=== PATIENT | female | born 1960 | race Caucasian/White ===

== ENCOUNTER 2016-10-18 08:45 | Emergency (ER) | payer OTHER ==
[~2016-10-18 08:45] MED LIST: ADVA100A INH; DIAZ10 PO; FURO1TAB60 PO; HYDR-3583 PO; HYDR25TA5 PO; IPRASOL INH; METF500T PO; PRED20 PO; VENTAER INH
[2016-10-18 08:51] VITALS: BP 149/71; PULSE 80; RESP 20; TEMP 97.9; O2SAT 96
--- NOTE | 2016-10-18 09:05 | PD ---
HPI Chief Complaint: Fall Time Seen by Provider: 08:57 Travel History International Travel<30 days: No Contact w/Intl Traveler<30days: No Traveled to known affect area: No History of Present Illness HPI 55-year-old female here with complaint of pain and swelling after a fall. 4 days ago patient had a mechanical fall, falling on outstretched right hand and landing on her right leg. She did not hit her head, denies any loss of consciousness, neck or back pain. She notes slight pain to the right elbow, worse with full extension and with having to pick items up. She is however able to fully extend and fully flex the elbow. She also notes pain globally throughout the right knee, medial aspect of the right ankle and dorsum of the right foot. She has developed progressive ecchymosis that has now settled into the foot prompting her ER visit. She is not on any blood thinners, but does take prednisone and states that she has fragile skin and bruises easily. PFSH Past Medical History Arthritis: No Asthma: Yes Autoimmune Disease: No Blood Disorders: No Anxiety: Yes Depression: Yes Heart Rhythm Problems: No Cancer: Yes (SKIN AND CERVICAL) Cardiovascular Problems: Yes High Cholesterol: Yes Chemotherapy: No Chest Pain: No Congestive Heart Failure: No COPD: Yes Cerebrovascular Accident: No Coronary Artery Disease: No Diabetes: Yes Diminished Hearing: No Endocrine: Yes Gastrointestinal Disorders: Yes (HX RUPT. DIVERTIC/ COLOSTOMY TAKE DOWN) GERD: No Glaucoma: No Genitourinary: No Headaches: No Hepatitis: No Hiatal Hernia: No Hypertension: No Immune Disorder: No Implanted Vascular Access Dvce: No Kidney Stones: No Musculoskeletal: Yes (CHR. BACK PAIN) Neurologic: No Psychiatric: Yes (ANXIETY) Reproductive: No Respiratory: Yes (COPD) Immunizations Current: Yes Migraines: No Myocardial Infarction: No Radiation Therapy: No Renal Failure: No Seizures: No Sickle Cell Disease: No Sleep Apnea: No Thyroid Disease: Yes (DYSFUNCTIONAL THYROGLOSSAL GLAND) Ulcer: No PNEUMOCCOCAL Vaccine (Year): 1 Menopausal: Yes : 1 Para: 1 Miscarriage: 0 : 0 Past Surgical History Abdominal Surgery: Yes (COLON RESESCTION/ COLOSTOMY, COLOSTOMY CLOSURE) AICD: No Appendectomy: No Arteriovenous Shunt: No Cardiac Surgery: No Section: Yes Cholecystectomy: No Ear Surgery: No Endocrine Surgery: Yes (THYROGLOSSAL GLAND I&D (X4)) Eye Surgery: No Genitourinary Surgery: Yes (C SEC.) Gynecologic Surgery: Yes () Insulin Pump: No Joint Replacement: No Neurologic Surgery: No Oral Surgery: Yes (CLEFT PALATE REPAIR) Pacemaker: No Thoracic Surgery: Yes (CLEFT PALATE REP. WITH RIB RESECT.) Other Surgery: Yes Social History Alcohol Use: Yes (~3-4 X WEEKLY) Tobacco Use: Yes (1 PPD) Substance Use: No (DENIES) Allergies-Medications (Allergen,Severity, Reaction): Coded Allergies: Tetracycline (Verified Allergy, Severe, YEAST INFECTION, 10/18/16) Reported Meds & Prescriptions Reported Meds & Active Scripts Active Lasix (Furosemide) 40 Mg Tab 40 Mg PO DAILY Reported Novolog Inj (Insulin Aspart) 1,000 Unit/10 Ml Vial 0 SQ DIRECTED Sliding Scale as directed. [K-Clor] 20 Meq PO DAILY Lantus Inj (Insulin Glargine) 1,000 Unit/10 Ml Vial 40 Units SQ HS Levothyroxine (Levothyroxine Sodium) 25 Mcg Tab Unknown Dose PO DAILY Simvastatin 20 Mg Tab Unknown Dose PO DAILY Gabapentin 800 Mg Tab 750 Mg PO TID Hydrocodone-Acetaminophen 10-325 mg Tab 1 Tab PO Q6H PRN Prednisone 20 Mg Tab 20 Mg PO DAILY Review of Systems Except as stated in HPI: all other systems reviewed are Neg Physical Exam Narrative GENERAL: Adult female appearing older than stated age in no acute distress SKIN: Ecchymosis of varying ages on all 4 extremities HEAD: Normocephalic. EYES: No scleral icterus. No injection or drainage. ENT: Mucous membranes pink and moist. NECK: Supple without midline tenderness CARDIOVASCULAR: Regular rate and rhythm. RESPIRATORY: No accessory muscle use. MUSCULOSKELETAL: Right elbow with full flexion and extension range of motion, good strength but with active flexion patient does have tenderness over the lateral aspect of the elbow. The right leg from the knee distally is ecchymotic. Notably in the dorsum of the foot. Patient has diffuse tenderness to palpation throughout the right knee but not any specific area along the joint line or patella. She is able to fully flex and fully extend the knee. She is able to ambulate and bear weight without difficulty. No obvious ligament laxity. The right ankle and foot are notably edematous with ecchymosis. She does have tenderness to palpation over the medial malleolus of the right ankle and along the first and second metatarsals of the right foot. Good distal sensation and pulses. NEUROLOGICAL: Awake and alert. Normal speech. PSYCHIATRIC: Appropriate mood and affect; insight and judgment normal. Data Data Last Documented VS Vital Signs Date Time Temp Pulse Resp B/P Pulse Ox O2 Delivery O2 Flow Rate FiO2 10/18/16 08:51 97.9 80 20 149/71 96 Orders Ankle, Complete (Qwc2avs) (10/18/16 09:00) Elbow, Complete (4 Vws) (10/18/16 09:00) Foot, Limited (2vws) (10/18/16 09:00) Knee, Complete (4vws) (10/18/16 09:00) MDM Medical Decision Making Medical Screen Exam Complete: Yes Emergency Medical Condition: Yes Medical Record Reviewed: Yes Differential Diagnosis 55-year-old female here with complaint of right elbow, knee, ankle and foot pain after mechanical fall 4 days ago. Differential includes contusion, ecchymosis, fracture, sprain, dislocation, internal derangement of the knee. Narrative Course X-rays of the right elbow, knee, ankle and foot were obtained and negative. Diagnosis Primary Impression: Traumatic ecchymosis of right lower leg Qualified Code: S80.11XA - Traumatic ecchymosis of right lower leg, initial encounter Additional Impressions: Contusion of right leg Qualified Code: S80.11XA - Contusion of right leg, initial encounter Fall Qualified Code: W19.XXXA - Fall, initial encounter Referrals: Primary Care Physician as needed Additional Instructions: X-rays of the elbow, knee, ankle and foot were negative. Ice and elevate as instructed. Med/Other Pt SpecificInfo: No Change to Meds Disposition: 01 DISCHARGE HOME Condition: Stable Akilah Randle MD Oct 18, 2016 09:05
[2016-10-18] MEDS ORDERED: SIMV20TA PO (09:09)
[2016-10-18] MEDS ORDERED: GABA800T PO (09:09)
[2016-10-18] MEDS ORDERED: LEVO25TA4 PO (09:09)
[2016-10-18] MEDS ORDERED: HYDR-3535 PO (09:10)
[2016-10-18] MEDS ORDERED: [UNRECOGNIZED DRUG - OTHER] PO (09:10)
[2016-10-18] MEDS ORDERED: LANTUS2P SQ (09:10)
[2016-10-18] MEDS ORDERED: NOVOLOGP2 SQ (09:10)
--- NOTE | 2016-10-18 09:49 | RADRPT ---
EXAM DATE/TIME: 10/18/2016 09:08 [facility] COMPARISON: No previous studies available for comparison. INDICATIONS : Right ankle pain after falling MEDICAL HISTORY : Diabetes mellitus type II. SURGICAL HISTORY : None. ENCOUNTER: Initial ACUITY: 4 - 6 days PAIN SCORE: 6/10 LOCATION: Right medial ankle FINDINGS: No definite fractures, or dislocations are identified. No definite lytic or sclerotic lesion is seen . Soft tissue swelling is identified. The joint spaces are well maintained. CONCLUSION: Soft tissue swelling and no definite fracture for technique. Chao Gonzalez MD on October 18, 2016 at 9:46 Board Certified Radiologist. This report was verified electronically.
--- NOTE | 2016-10-18 09:51 | RADRPT ---
EXAM DATE/TIME: 10/18/2016 09:11 [facility] COMPARISON: No previous studies available for comparison. INDICATIONS : Right knee pain after falling MEDICAL HISTORY : Diabetes mellitus type II. SURGICAL HISTORY : None. ENCOUNTER: Initial ACUITY: 4 - 6 days PAIN SCORE: 3/10 LOCATION: Right anterior knee FINDINGS: No definite fractures, or dislocations are identified. No definite lytic or sclerotic lesion is seen . The joint spaces are well maintained. CONCLUSION: Unremarkable study. Chao Gonzalez MD on October 18, 2016 at 9:49 Board Certified Radiologist. This report was verified electronically.
--- NOTE | 2016-10-18 09:51 | RADRPT ---
EXAM DATE/TIME: 10/18/2016 09:10 [facility] COMPARISON: No previous studies available for comparison. INDICATIONS : Right foot pain after falling MEDICAL HISTORY : Diabetes mellitus type II. SURGICAL HISTORY : None. ENCOUNTER: Initial ACUITY: 4 - 6 days PAIN SCORE: 5/10 LOCATION: Right anterior foot FINDINGS: No definite fractures, or dislocations are identified. No definite lytic or sclerotic lesion is seen . The joint spaces are well maintained. CONCLUSION: Unremarkable study. Chao Gonzalez MD on October 18, 2016 at 9:48 Board Certified Radiologist. This report was verified electronically.
--- NOTE | 2016-10-18 09:54 | RADRPT ---
EXAM DATE/TIME: 10/18/2016 09:15 [facility] COMPARISON: ELBOW RIGHT COMPLETE (4 VWS), November 26, 2014, 22:54. INDICATIONS : Right elbow pain after falling MEDICAL HISTORY : Diabetes mellitus type II. SURGICAL HISTORY : None. ENCOUNTER: Initial ACUITY: 4 - 6 days PAIN SCORE: 5/10 LOCATION: Right posterior elbow FINDINGS: No definite fractures, or dislocations are identified. No definite lytic or sclerotic lesion is seen . The joint spaces are well maintained.There is a lucent line involving the radial head has the appe arance of a nutrient channel. CONCLUSION: Unremarkable study. Chao Gonzalez MD on October 18, 2016 at 9:50 Board Certified Radiologist. This report was verified electronically.
== END 2016-10-18 10:04 | disposition home or self-care (01) ==
LOC: PHED 08:45
DX: S80.11XA Contusion of right lower leg, initial encounter (principal); S90.31XA Contusion of right foot, initial encounter; S90.01XA Contusion of right ankle, initial encounter; M25.521 Pain in right elbow; E11.9 Type 2 diabetes mellitus without complications; E07.9 Disorder of thyroid, unspecified; E78.00 Pure hypercholesterolemia, unspecified; F17.200 Nicotine dependence, unspecified, uncomplicated; W19.XXXA Unspecified fall, initial encounter; Z79.4 Long term (current) use of insulin; Z87.09 Personal history of other diseases of the respiratory system; Z86.59 Personal history of other mental and behavioral disorders; Z86.79 Personal history of other diseases of the circulatory system; Z87.19 Personal history of other diseases of the digestive system; Z87.39 Personal history of other diseases of the musculoskeletal system and connective tissue
CPT/HCPCS: 73080; 73564; 73610; 73620; 99284

== ENCOUNTER → 2017-04-07 | Outpatient (CLI) | payer OTHER ==
[~2017-04-07] MED LIST changes: -ADVA100A INH; -DIAZ10 PO; +DIFL0.0512 RIGHT EYE; +FURO40TA PO; +GABA800T PO; -HYDR25TA5 PO; -IPRASOL INH; +LANTUS2P SQ; +LEVO25TA4 PO; -METF500T PO; +NEPA0.3D RIGHT EYE; +NOVOLOGP2 SQ; +SIMV20TA PO; -VENTAER INH; +VIGA0.5D RIGHT EYE; +[UNRECOGNIZED DRUG - OTHER] PO
--- NOTE | 2017-04-08 14:31 | EKG ---
Date Performed: 04/07/2017 Time Performed: 13:42:00 PTAGE: 56 years EKG: Sinus rhythm . Inferior/lateral ST-T changes are nonspecific Compared to previous tracing the marked inferolateral ST segment depression has resolved. Clinical correlation will be necessary to exclude reversible ora cardial ischemia. Borderline ECG PREVIOUS TRACING : 02/04/2016 19.39 DOCTOR: Patience Guzman Interpretating Date/Time 04/08/2017 14:29:57
== END ==
LOC: HCAV 13:36
PROVIDERS: ATTEND Ophthalmology
DX: H25.041 Posterior subcapsular polar age-related cataract, right eye (principal); R94.31 Abnormal electrocardiogram [ECG] [EKG]
CPT/HCPCS: 93005

== ENCOUNTER → 2017-04-30 | Day surgery (SDC) | payer OTHER ==
[~2017-04-30] VITALS: Ht 170.2 cm; Wt 73.5 kg
[~2017-04-30] MED LIST changes: +ACETAMINOPHEN 500 MG CPLT ONE; +CIPR-9 PO; +CYCLOPENTOLATE HCL 1% OPHT SOLN 2 ML BTL ONE; +DEXAMETHASONE SOD PHOS 4 MG/ML VIAL IV ONE; +EPINEPHrine HCL PF/SF (1:1000) 1 MG/ML AMP I-OCULAR ONE; +LIDOCAINE HCL 1% PF 5 ML SYRINGE OTHER ONE; +MIDAZOLAM HCL 2 MG/2 ML VIAL ONE; +ONDANSETRON HCL 4 MG/2 ML VIAL IV PUSH ONE; +PHENYLEPHRINE HCL 10% OPTH SOLN 5 ML BTL ONE; +PROPOFOL 200 MG/20 ML AMP IV ONE; +SODIUM CHLORID 0.9% 500 ML INJ 500 ML ONE; +SYMB80AE INH; +TETRACAINE 0.5% OPTH SOLN 4 ML BTL ONE; +TOBRAMYCIN/DEXAMETHASONE OPTH OINT 3.5 GM TUBE ONE; +TROPICAMIDE 1% OPHT SOLN 15 ML BTL ONE; +VISCOAT OPHT IRRIG SOLN 0.75 ML SYRINGE ONE; +fentaNYL CITRATE 250 MCG/5 ML AMP ONE
[2017-04-30] MEDS: TROPICAMIDE 1% OPHT SOLN 15 ML BTL RIGHT EYE SCH ×3 (07:05→07:15)
[2017-04-30] MEDS: PHENYLEPHRINE HCL 10% OPTH SOLN 5 ML BTL RIGHT EYE SCH ×3 (07:05→07:15)
[2017-04-30] MEDS: TETRACAINE 0.5% OPTH SOLN 4 ML BTL RIGHT EYE SCH ×3 (07:05→07:15)
[2017-04-30] MEDS: CYCLOPENTOLATE HCL 1% OPHT SOLN 2 ML BTL RIGHT EYE SCH ×3 (07:05→07:15)
[2017-04-30 09:03] VITALS: PULSE 83
--- NOTE | 2017-04-30 09:07 | PD.OP ---
Operative Report Date of Surgery: Apr 30, 2017 Preoperative Diagnosis: (1) Posterior subcapsular age-related cataract of right eye Postoperative Diagnosis: (1) Pseudophakia of right eye Procedure: phacoemulsification and intraocular lens implant right eye Anesthesia: General Surgeon: Marjan Oneil Sheet Metal Roofer(s): none Operation and Findings: Patient was consented for surgery, and taken back to the operating room. She was put under general anesthesia and prepped and draped in the usual sterile fashion for ophthalmic surgery. A wire lid speculum was placed in the right eye. A paracentesis incision was created at the 11 o'clock position on the limbus. Vision blue dye and viscoelastic was injected into the anterior chamber. The main incision was created at the 8 o'clock position on the limbus with a 2.4 mm keratome. A continuous curvilinear capsulorrhexis was made on the anterior lens capsule. Hydrodissection was used to separate the lens from the capsule. Phacoemulsification was used to remove the lens nucleus material. Irrigation and aspiration was used to remove the remaining cortical material. The lens implant ([id number] SN [id number]) was placed in the capsular bag. Viscoelastic was removed with irrigation and aspiration. The incisions were irrigated and found to be watertight. Tobradex ointment, a patch, and shield were placed on the right eye. The patient was sent to PACU in stable condition. Marjan Oneil MD Apr 30, 2017 09:07
[2017-04-30 09:15] VITALS: BP 158/79
[2017-04-30 09:27] VITALS: PULSE 76; RESP 16; TEMP 97.8; O2SAT 93
== END | disposition home or self-care (01) ==
LOC: PHSDC 06:38
PROVIDERS: ATTEND Ophthalmology
DX: H25.041 Posterior subcapsular polar age-related cataract, right eye (principal)
CPT/HCPCS: 00142; 66984; J0171; J1100; J2250; J2405; J3010; J7040; V2632

== ENCOUNTER 2017-09-14 02:08 | Emergency (ER) | payer OTHER ==
[~2017-09-14 02:08] MED LIST changes: -ACETAMINOPHEN 500 MG CPLT ONE; -CYCLOPENTOLATE HCL 1% OPHT SOLN 2 ML BTL ONE; -DEXAMETHASONE SOD PHOS 4 MG/ML VIAL IV ONE; -EPINEPHrine HCL PF/SF (1:1000) 1 MG/ML AMP I-OCULAR ONE; -FURO40TA PO; -LIDOCAINE HCL 1% PF 5 ML SYRINGE OTHER ONE; -MIDAZOLAM HCL 2 MG/2 ML VIAL ONE; -ONDANSETRON HCL 4 MG/2 ML VIAL IV PUSH ONE; -PHENYLEPHRINE HCL 10% OPTH SOLN 5 ML BTL ONE; -PROPOFOL 200 MG/20 ML AMP IV ONE; -SODIUM CHLORID 0.9% 500 ML INJ 500 ML ONE; -TETRACAINE 0.5% OPTH SOLN 4 ML BTL ONE; -TOBRAMYCIN/DEXAMETHASONE OPTH OINT 3.5 GM TUBE ONE; -TROPICAMIDE 1% OPHT SOLN 15 ML BTL ONE; -VISCOAT OPHT IRRIG SOLN 0.75 ML SYRINGE ONE; -fentaNYL CITRATE 250 MCG/5 ML AMP ONE
[2017-09-14 02:11] VITALS: BP 121/70; PULSE 92; RESP 20; TEMP 98.3; O2SAT 94
[2017-09-14 02:15] VITALS: O2SAT 94
[2017-09-14] MEDS ORDERED: methylPREDNISolone SOD SUCC 125 MG/2 ML VIAL IV PUSH ONE (02:15)
[2017-09-14] MEDS ORDERED: SODIUM CHLORIDE 0.9% FLUSH 10 ML FLUSH IVF PRN (02:15)
[2017-09-14] MEDS: RESP: ALBUTEROL 2.5 MG/IPRATROPIUM 0.5 MG NEB (SCH) INH ×3 (02:26→02:44)
--- NOTE | 2017-09-14 02:42 | RADRPT ---
EXAM DATE: 09/14/2017 2:30 AM EDT AGE/SEX: 56 years / Female INDICATIONS: Short of breath. CLINICAL DATA: This is the patient's initial encounter. Patient reports that signs and symptoms have been present for 1 day and indicates a pain score of 0/10. MEDICAL/SURGICAL HISTORY: . Hypercholesterolemia. Chronic obstructive pulmonary disease. Divert iculitis None. COMPARISON: [facility], CHEST SINGLE AP, 01/09/2016. . FINDINGS: A single AP view of the chest demonstrates the lungs to be symmetrically aerated without evidence of mass, infiltrate or effusion. The cardiomediastinal contours are unremarkable. Osseous structures a re intact. Atherosclerotic calcifications are again noted in the aorta. CONCLUSION: No acute cardiopulmonary disease. Electronically signed by: Pawel Zavala MD 09/14/2017 2:41 AM EDT
[2017-09-14 02:50] LABS: AUTOMATED NEUTROPHIL # 4.5 TH/MM3 (1.8-7.7); BASOPHIL # 0.1 TH/MM3 (0-0.2); EOSINOPHIL # 0.1 TH/MM3 (0-0.4); EOSINOPHIL % 0.8 % (0.0-4.0); HEMATOCRIT 45.8 % (35.0-46.0); HEMOGLOBIN 15.5 GM/DL (11.6-15.3); LYMPH % 31.7 % (9.0-44.0); LYMPHOCYTE # 2.4 TH/MM3 (1.0-4.8); MEAN CELL VOLUME 99.6 FL (80.0-100.0); MEAN CORPUSCULAR HEMOGLOBIN 33.6 PG (27.0-34.0); MEAN CORPUSCULAR HGB CONC 33.8 % (32.0-36.0); MEAN PLATELET VOLUME 8.1 FL (7.0-11.0); MONO % 7.1 % (0.0-8.0); MONOCYTE # 0.5 TH/MM3 (0-0.9); NEUT % 59.4 % (16.0-70.0); PLATELET COUNT 191 TH/MM3 (150-450); RED CELL DISTRIBUTION WIDTH 13.7 % (11.6-17.2); WHITE BLOOD COUNT 7.6 TH/MM3 (4.0-11.0)
[2017-09-14] MEDS ORDERED: IBUPROFEN 800 MG TAB PO ONE (03:00)
[2017-09-14 03:01] LABS: CHLORIDE 99 MEQ/L (98-107); SODIUM (NA) 137 MEQ/L (136-145)
[2017-09-14 03:03] LABS: BICARBONATE 23.4 MEQ/L (21.0-32.0); CALCIUM 8.8 MG/DL (8.5-10.1)
--- NOTE | 2017-09-14 03:07 | PD ---
HPI . Shortness of breath Chief Complaint: Fall Time Seen by Provider: 02:12 Travel History International Travel<30 days: No Contact w/Intl Traveler<30days: No Traveled to known affect area: No History of Present Illness HPI This patient presents to us by EV[facility] with the chief complaint of shortness of breath. She has reportedly had a cough for the last 3 days. She has reportedly been short of breath for the last couple of hours. The patient is extremely intoxicated and not really able to contribute much to her history. She is complaining with left ankle or foot pain but is noted to have an abrasion on the right auguste. There is some confusion as to when she may have sustained the injury. She is saying that it was a few days ago but her says that it was tonight. PFSH Past Medical History Arthritis: No Asthma: Yes Autoimmune Disease: No Blood Disorders: No Anxiety: Yes Depression: Yes Heart Rhythm Problems: No Cancer: Yes (CERVICAL CA) Cardiovascular Problems: Yes (HTN) High Cholesterol: Yes Chemotherapy: No Chest Pain: No Congestive Heart Failure: No COPD: Yes Cerebrovascular Accident: No Coronary Artery Disease: No Diabetes: Yes Patient Takes Glucophage: No Diminished Hearing: No Endocrine: Yes (TYPE 2 DM) Gastrointestinal Disorders: Yes (HX RUPT. DIVERTIC/ COLOSTOMY TAKE DOWN) GERD: No Glaucoma: No Genitourinary: No Headaches: No Hepatitis: No Hiatal Hernia: No Hypertension: No Immune Disorder: No Implanted Vascular Access Dvce: No Kidney Stones: No Musculoskeletal: Yes (CHR. BACK PAIN) Neurologic: Yes (NEUROPATHY RIGHT HAND & BILAT FEET) Psychiatric: Yes (ANXIETY) Reproductive: No Respiratory: Yes (COPD ) Immunizations Current: Yes Migraines: No Myocardial Infarction: No Radiation Therapy: No Renal Failure: No Seizures: No Sickle Cell Disease: No Sleep Apnea: No Thyroid Disease: Yes (DYSFUNCTIONAL THYROGLOSSAL GLAND, HYPOTHYROIDISM) Ulcer: No Tetanus Vaccination: < 5 Years Influenza Vaccination: No PNEUMOCCOCAL Vaccine (Year): 1 Menopausal: Yes : 1 Para: 1 Miscarriage: 0 : 0 Past Surgical History Abdominal Surgery: Yes (COLON RESESCTION/ COLOSTOMY, COLOSTOMY CLOSURE) AICD: No Appendectomy: No Arteriovenous Shunt: No Cardiac Surgery: No Section: Yes Cholecystectomy: No Ear Surgery: No Endocrine Surgery: Yes (THYROGLOSSAL GLAND I&D (X4)) Eye Surgery: No Genitourinary Surgery: Yes Gynecologic Surgery: Yes () Insulin Pump: No Joint Replacement: No Neurologic Surgery: No Oral Surgery: Yes (CLEFT PALATE REPAIR) Pacemaker: No Thoracic Surgery: Yes (CLEFT PALATE REP. WITH RIB RESECT.) Other Surgery: Yes Social History Alcohol Use: Yes (daily) Tobacco Use: Yes (2 PPD) Substance Use: No Allergies-Medications (Allergen,Severity, Reaction): Coded Allergies: doxycycline (Verified Allergy, Severe, Itching, 09/14/17) minocycline (Verified Allergy, Severe, Itching, 09/14/17) tigecycline (Verified Allergy, Severe, Itching, 09/14/17) Reported Meds & Prescriptions Reported Meds & Active Scripts Active Lasix (Furosemide) 40 Mg Tab 40 Mg PO DAILY Reported Symbicort Inh (Budesonide/Formoterol Fumarate) 80-4.5 Mcg/Act Aero 1 Puff INH Q12HR Cipro (Ciprofloxacin HCl) 500 Mg Tab 500 Mg PO BID Novolog Inj (Insulin Aspart) 1,000 Unit/10 Ml Vial 0 SQ DIRECTED Sliding Scale as directed. [K-Clor] 20 Meq PO DAILY Lantus Inj (Insulin Glargine) 1,000 Unit/10 Ml Vial 40 Units SQ HS Levothyroxine (Levothyroxine Sodium) 25 Mcg Tab Unknown Dose PO DAILY Simvastatin 20 Mg Tab 20 Mg PO DAILY Gabapentin 800 Mg Tab 750 Mg PO TID Hydrocodone-Acetaminophen 10-325 mg Tab 1 Tab PO Q6H PRN Prednisone 20 Mg Tab 20 Mg PO DAILY Review of Systems ROS Limitations: Intoxication Except as stated in HPI: all other systems reviewed are Neg Physical Exam Narrative GENERAL: Patient is very intoxicated. SKIN: warm/dry. Multiple superficial hematomas compatible with platelet dysfunction associated with chronic alcohol abuse. She also has a superficial abrasion on the right auguste. HEAD: Normocephalic. Atraumatic. EYES: Pupils equal and round. Extraocular movements are intact. Conjunctivae are injected. ENT: Mucous membranes pink and moist. NECK: Supple. Full range of motion without pain.. CARDIOVASCULAR: Regular rate and rhythm. Heart sounds are normal. RESPIRATORY: No accessory muscle use. Sats on room air are 94% initially. She has diffuse, coarse inspiratory and expiratory wheezing. MUSCULOSKELETAL: No obvious deformities. Normal muscle tone. NEUROLOGICAL: Awake and alert. No obvious cranial nerve deficits. Motor grossly within normal limits. Normal speech. PSYCHIATRIC: Appropriate mood and affect; insight and judgment normal. Data Data Last Documented VS Vital Signs Date Time Temp Pulse Resp B/P (MAP) Pulse Ox O2 Delivery O2 Flow Rate FiO2 09/14/17 02:47 20 94 Room Air 09/14/17 02:11 98.3 92 121/70 (87) Orders Orders Complete Blood Count With Diff (09/14/17 02:12) Basic Metabolic Panel (Bmp) (09/14/17 02:12) B-Type Natriuretic Peptide (09/14/17 02:12) Troponin I (09/14/17 02:12) Blood Culture (09/14/17 02:12) Iv Access Insert/Monitor (09/14/17 02:12) Electrocardiogram (09/14/17 02:12) Ecg Monitoring (09/14/17 02:12) Oximetry (09/14/17 02:12) Chest, Single Ap (09/14/17 02:12) Sodium Chloride 0.9% Flush (Ns Flush) (09/14/17 02:15) Methylprednisolone So Succ Inj (Solumedr (09/14/17 02:15) Albuterol-Ipratropium Neb (Duoneb Neb) (09/14/17 02:15) Ibuprofen (Motrin) (09/14/17 03:00) Ankle, Complete ([id number]) (09/14/17 03:18) Labs Laboratory Tests Test 09/14/17 02:35 White Blood Count 7.6 TH/MM3 Red Blood Count 4.60 MIL/MM3 Hemoglobin 15.5 GM/DL Hematocrit 45.8 % Mean Corpuscular Volume 99.6 FL Mean Corpuscular Hemoglobin 33.6 PG Mean Corpuscular Hemoglobin Concent 33.8 % Red Cell Distribution Width 13.7 % Platelet Count 191 TH/MM3 Mean Platelet Volume 8.1 FL Neutrophils (%) (Auto) 59.4 % Lymphocytes (%) (Auto) 31.7 % Monocytes (%) (Auto) 7.1 % Eosinophils (%) (Auto) 0.8 % Basophils (%) (Auto) 1.0 % Neutrophils # (Auto) 4.5 TH/MM3 Lymphocytes # (Auto) 2.4 TH/MM3 Monocytes # (Auto) 0.5 TH/MM3 Eosinophils # (Auto) 0.1 TH/MM3 Basophils # (Auto) 0.1 TH/MM3 CBC Comment DIFF FINAL Differential Comment Blood Urea Nitrogen 8 MG/DL Creatinine 0.92 MG/DL Random Glucose 425 MG/DL Calcium Level 8.8 MG/DL Sodium Level 137 MEQ/L Potassium Level 3.2 MEQ/L Chloride Level 99 MEQ/L Carbon Dioxide Level 23.4 MEQ/L Anion Gap 15 MEQ/L Estimat Glomerular Filtration Rate 63 ML/MIN Troponin I LESS THAN 0.02 NG/ML B-Type Natriuretic Peptide 55 PG/ML MDM Medical Decision Making Medical Screen Exam Complete: Yes Emergency Medical Condition: Yes Interpretation(s) EKG shows a lot of artifact. Underlying rhythm is sinus. I do not see any obvious STT wave changes. Differential Diagnosis Differential diagnosis of dyspnea includes but is not limited to congestive heart failure, pneumonia, wheezing, pneumothorax, pulmonary embolism Narrative Course This patient presents to us by EVAC with several complaints. I will focus on her shortness of breath. She has reportedly been short of breath for couple of hours and has had a cough for the last 3 days. She has a history of COPD. Her usual sats per her old records are about 93%. Chest x-ray and blood work are in process. She is being treated with Solu- Medrol and stacked nebs. The patient continues to yell out loudly that her ankle is bothering her. This tells me that she is not having any trouble breathing. She is requesting pain medication. She is quite intoxicated. I have given her a Motrin. CBC & BMP Diagram 09/14/17 02:35 Calcium Level 8.8 Troponin less than 0.02 BNP 55 This patient takes hydrocodone 10 mg regularly. She does have an ankle fracture. I will give her a prescription for 12 Percocet and will instruct her to not take both together and do not drink alcohol while taking either of them. Diagnosis Primary Impression: COPD exacerbation Additional Impressions: Alcohol intoxication Qualified Codes: F10.920 - Alcohol use, unspecified with intoxication, uncomplicated Skin abrasion Fracture of left ankle, lateral malleolus Qualified Codes: S82.65XA - Nondisplaced fracture of lateral malleolus of left fibula, initial encounter for closed fracture Referrals: Stew Hou MD Patient Instructions: Ankle Fracture (DC), General Instructions Med/Other Pt SpecificInfo: Prescription(s) given Scripts Oxycodone-Acetaminophen (Percocet) 5-325 mg Tab 1 TAB PO Q4H Y for PAIN, #12 TAB 0 Refills Prov: Estephania Guerra MD 09/14/17 Disposition: 01 DISCHARGE HOME Condition: Stable Estephania Guerra MD Sep 14, 2017 03:07
[2017-09-14 03:20] LABS: BLOOD UREA NITROGEN 8 MG/DL (7-18); CREATININE 0.92 MG/DL (0.50-1.00); GLOMERULAR FILTRATION RATE 63 ML/MIN (>89); GLUCOSE,RANDOM 425 MG/DL (74-106); TROPONIN I LESS THAN 0.02 NG/ML (0.02-0.05)
[2017-09-14] MEDS ORDERED: PERC5TAB12 PO (03:50)
--- NOTE | 2017-09-14 04:09 | RADRPT ---
EXAM DATE: 09/14/2017 3:41 AM EDT AGE/SEX: 56 years / Female INDICATIONS: Left ankle pain after fall. CLINICAL DATA: This is the patient's initial encounter. Patient reports that signs and symptoms have been present for 2 days and indicates a pain score of 6/10. MEDICAL/SURGICAL HISTORY: None. None. COMPARISON: No prior exams available for comparison. FINDINGS: AP, lateral and oblique views of the left ankle were obtained and demonstrate a slightly distracted o blique fracture through the distal fibula which begins approximately 2 cm above the da and extend s into the lateral ankle mortise. The ankle mortise is intact in appearance. There is mild overlying soft tissue swelling. The calcaneus and talus are intact. CONCLUSION: Mildly distracted oblique fracture through the distal fibula. Electronically signed by: Pawel Zavala MD 09/14/2017 4:08 AM EDT
[2017-09-14 04:32] VITALS: BP 140/70
--- NOTE | 2017-09-14 14:05 | EKG ---
Date Performed: 09/14/2017 Time Performed: 02:19:45 PTAGE: 56 years EKG: NORMAL Sinus rhythm LEFT ATRIAL ABNORMALITY NONSPECIFIC ST-T WAVE CHANGES WITH NO SIGNIFICANT CHANGE FROM PRIOR ABNORMAL ECG PREVIOUS TRACING : 04/07/2017 13.42 DOCTOR: Gurjit Minaya Interpretating Date/Time 09/14/2017 14:03:59
== END 2017-09-14 04:33 | disposition home or self-care (01) ==
LOC: PHED 02:08
DX: J44.1 Chronic obstructive pulmonary disease with (acute) exacerbation (principal); F10.920 Alcohol use, unspecified with intoxication, uncomplicated; S82.402A Unspecified fracture of shaft of left fibula, initial encounter for closed fracture; S80.811A Abrasion, right lower leg, initial encounter; R94.31 Abnormal electrocardiogram [ECG] [EKG]; F32.9 Major depressive disorder, single episode, unspecified; E78.00 Pure hypercholesterolemia, unspecified; I10 Essential (primary) hypertension; E11.9 Type 2 diabetes mellitus without complications; E03.9 Hypothyroidism, unspecified; F41.9 Anxiety disorder, unspecified; Z79.4 Long term (current) use of insulin; Z85.41 Personal history of malignant neoplasm of cervix uteri
CPT/HCPCS: 71045; 73610; 80048; 83880; 84484; 85025; 86403; 87040; 87205; 93005; 94640; 94664; 96374; 99285; E0113; J2930; L1906

== ENCOUNTER 2017-09-16 21:10 | Emergency (ER) | payer OTHER ==
[~2017-09-16] VITALS: Ht 170.2 cm; Wt 75.2 kg
[~2017-09-16 21:10] MED LIST changes: -DIFL0.0512 RIGHT EYE; -NEPA0.3D RIGHT EYE; +PERC5TAB12 PO; -VIGA0.5D RIGHT EYE
[2017-09-16 21:16] VITALS: BP 149/76; PULSE 108; RESP 18; TEMP 98.1; O2SAT 92
[2017-09-16] MEDS ORDERED: PERC5TAB12 PO (23:40)
--- NOTE | 2017-09-16 23:40 | PD ---
HPI Chief Complaint: Abnormal Results Time Seen by Provider: 23:14 Travel History International Travel<30 days: No Contact w/Intl Traveler<30days: No Traveled to known affect area: No History of Present Illness HPI The patient was called in because there was a contaminant on 1 of her blood cultures. 1 of her blood cultures grew out gram-positive cocci in pairs and clusters. The patient denies any fever. Her white count at the time the blood cultures were drawn was normal and the 7000 range. The patient's complaint at that time was bronchitis and now the complaint is left ankle pain. The patient states he is about to run out of her Percocet. She states her last drink of alcohol was yesterday. She was apparently intoxicated on her last visit on the PFSH Past Medical History Arthritis: No Asthma: Yes Autoimmune Disease: No Blood Disorders: No Anxiety: Yes Depression: Yes Heart Rhythm Problems: No Cancer: Yes (CERVICAL CA) Cardiovascular Problems: Yes (HTN) High Cholesterol: Yes Chemotherapy: No Chest Pain: No Congestive Heart Failure: No COPD: Yes Cerebrovascular Accident: No Coronary Artery Disease: No Diabetes: Yes Patient Takes Glucophage: No Diminished Hearing: No Endocrine: Yes (TYPE 2 DM) Gastrointestinal Disorders: Yes (HX RUPT. DIVERTIC/ COLOSTOMY TAKE DOWN) GERD: No Glaucoma: No Genitourinary: No Headaches: No Hepatitis: No Hiatal Hernia: No Hypertension: No Immune Disorder: No Implanted Vascular Access Dvce: No Kidney Stones: No Medical other: No Musculoskeletal: Yes (CHR. BACK PAIN) Neurologic: Yes (NEUROPATHY RIGHT HAND & BILAT FEET) Psychiatric: Yes (ANXIETY) Reproductive: No Respiratory: Yes (COPD ) Immunizations Current: Yes Migraines: No Myocardial Infarction: No Radiation Therapy: No Renal Failure: No Seizures: No Sickle Cell Disease: No Sleep Apnea: No Thyroid Disease: Yes (DYSFUNCTIONAL THYROGLOSSAL GLAND, HYPOTHYROIDISM) Ulcer: No Tetanus Vaccination: < 5 Years Influenza Vaccination: No PNEUMOCCOCAL Vaccine (Year): 1 Menopausal: Yes : 1 Para: 1 Miscarriage: 0 : 0 Past Surgical History Abdominal Surgery: Yes (COLON RESESCTION/ COLOSTOMY, COLOSTOMY CLOSURE) AICD: No Appendectomy: No Arteriovenous Shunt: No Cardiac Surgery: No Section: Yes Cholecystectomy: No Ear Surgery: No Endocrine Surgery: Yes (THYROGLOSSAL GLAND I&D (X4)) Eye Surgery: No Genitourinary Surgery: Yes Gynecologic Surgery: Yes () Insulin Pump: No Joint Replacement: No Neurologic Surgery: No Oral Surgery: Yes (CLEFT PALATE REPAIR) Pacemaker: No Thoracic Surgery: Yes (CLEFT PALATE REP. WITH RIB RESECT.) Other Surgery: Yes Social History Alcohol Use: Yes (daily) Tobacco Use: Yes (2 PPD) Substance Use: No Allergies-Medications (Allergen,Severity, Reaction): Coded Allergies: doxycycline (Verified Allergy, Severe, Itching, 09/14/17) minocycline (Verified Allergy, Severe, Itching, 09/14/17) tigecycline (Verified Allergy, Severe, Itching, 09/14/17) Reported Meds & Prescriptions Reported Meds & Active Scripts Active Percocet (Oxycodone-Acetaminophen) 5-325 mg Tab 1 Tab PO Q4H PRN Lasix (Furosemide) 40 Mg Tab 40 Mg PO DAILY Reported Symbicort Inh (Budesonide/Formoterol Fumarate) 80-4.5 Mcg/Act Aero 1 Puff INH Q12HR Cipro (Ciprofloxacin HCl) 500 Mg Tab 500 Mg PO BID Novolog Inj (Insulin Aspart) 1,000 Unit/10 Ml Vial 0 SQ DIRECTED Sliding Scale as directed. [K-Clor] 20 Meq PO DAILY Lantus Inj (Insulin Glargine) 1,000 Unit/10 Ml Vial 40 Units SQ HS Levothyroxine (Levothyroxine Sodium) 25 Mcg Tab Unknown Dose PO DAILY Simvastatin 20 Mg Tab 20 Mg PO DAILY Gabapentin 800 Mg Tab 750 Mg PO TID Hydrocodone-Acetaminophen 10-325 mg Tab 1 Tab PO Q6H PRN Prednisone 20 Mg Tab 20 Mg PO DAILY Review of Systems Except as stated in HPI: all other systems reviewed are Neg Physical Exam Narrative GENERAL: The patient does not appear intoxicated at this time. The heart rate is 108 and blood pressure 129/76 but the rest of the vital signs are normal. SKIN: Focused skin assessment warm/dry. HEAD: Atraumatic. Normocephalic. EYES: Pupils equal and round. No scleral icterus. No injection or drainage. ENT: No nasal bleeding or discharge. Mucous membranes pink and moist. NECK: Trachea midline. No JVD. CARDIOVASCULAR: Regular rate and rhythm. No murmur appreciated. RESPIRATORY: No accessory muscle use. Clear to auscultation. Breath sounds equal bilaterally. GASTROINTESTINAL: Abdomen soft, non-tender, nondistended. Hepatic and splenic margins not palpable. MUSCULOSKELETAL: No obvious deformities. No clubbing. No cyanosis. No edema. The patient has pain and swelling around the left ankle where the lateral malleolus is known to be fractured. No erythema is present. A stirrup splint is in place. NEUROLOGICAL: Awake and alert. No obvious cranial nerve deficits. Motor grossly within normal limits. Normal speech. PSYCHIATRIC: Appropriate mood and affect; insight and judgment normal. Data Data Last Documented VS Vital Signs Date Time Temp Pulse Resp B/P (MAP) Pulse Ox O2 Delivery O2 Flow Rate FiO2 09/16/17 22:38 Room Air 09/16/17 21:16 98.1 108 18 149/76 (100) 92 MDM Medical Decision Making Medical Screen Exam Complete: Yes Emergency Medical Condition: Yes Medical Record Reviewed: Yes Differential Diagnosis Left ankle fracture, possible sepsis Narrative Course At this time sepsis seems highly unlikely, there is no fever and at that time the blood cultures were drawn the white count was normal. I am not going to repeat the blood cultures since she does not appear septic. I will give her a refill on her Percocet 5 #12. Will also give her crutches. Diagnosis Primary Impression: Closed left ankle fracture Additional Instructions: Elevate her left leg as much as possible. Again, stay away from alcohol. Do not drive on the Percocet 5. Follow-up with orthopedics as soon as possible. Call the block and case maker between 9-5 tomorrow for help in getting an appointment with orthopedics.. Med/Other Pt SpecificInfo: Prescription(s) given Scripts Oxycodone-Acetaminophen (Percocet) 5-325 mg Tab 1 TAB PO Q6H Y for PAIN, #12 TAB 0 Refills Prov: Omar Blue MD 09/16/17 Disposition: 01 DISCHARGE HOME Condition: Stable Omar Blue MD Sep 16, 2017 23:40
[2017-09-17 00:03] VITALS: BP 138/88; TEMP 98.3
== END 2017-09-17 00:05 | disposition home or self-care (01) ==
LOC: PHED 21:10
DX: S82.892A Other fracture of left lower leg, initial encounter for closed fracture (principal); X58.XXXA Exposure to other specified factors, initial encounter
CPT/HCPCS: 99281; L1830